=== PATIENT | female | born 1995 | race Caucasian/White ===

== ENCOUNTER 2016-07-29 | Emergency (ER) | payer OTHER ==
[~2016-07-29] VITALS: Ht 154.9 cm; Wt 79.4 kg
[2016-07-29] MEDS ORDERED: BACT800T5 PO (03:09)
[2016-07-29] MEDS ORDERED: BACTRIM 160MG/800MG DS TAB PO ONE (03:15)
[2016-07-29 03:20] VITALS: BP 124/73
== END 2016-07-29 03:21 | disposition home or self-care (01) ==
LOC: M ED 01:16
DX: L03.114 Cellulitis of left upper limb (principal)

== ENCOUNTER 2016-09-03 21:38 | Emergency (ER) | payer OTHER ==
[~2016-09-03] VITALS: Ht 154.9 cm; Wt 79.4 kg
[~2016-09-03 21:38] MED LIST: BACT800T5 PO
[2016-09-03 21:39] VITALS: BP 123/68
[2016-09-03] MEDS ORDERED: KEFL500C7 PO (23:40)
[2016-09-03] MEDS ORDERED: CEPHALEXIN 500 MG CAP PO ONE (23:45)
== END 2016-09-03 23:49 | disposition home or self-care (01) ==
LOC: M ED 23:44
DX: L03.011 Cellulitis of right finger (principal)

== ENCOUNTER → 2016-09-07 | Outpatient (REF) | payer OTHER ==
[~2016-09-07] MED LIST changes: +KEFL500C7 PO
== END ==
LOC: M WUC 16:30
PROVIDERS: ATTEND Physician Assistant
DX: L03.011 Cellulitis of right finger (principal)

== ENCOUNTER → 2016-11-01 | Outpatient (REF) | payer OTHER ==
[~2016-11-01] MED LIST changes: +KEFL500C17 PO; -KEFL500C7 PO; +NAPR500T PO
== END ==
LOC: M LAB REF 10:15
PROVIDERS: ATTEND Surgery
DX: L98.9 Disorder of the skin and subcutaneous tissue, unspecified (principal)

== ENCOUNTER 2016-11-28 20:10 | Emergency (ER) | payer OTHER ==
[~2016-11-28] VITALS: Ht 154.9 cm; Wt 79.5 kg
[~2016-11-28 20:10] MED LIST changes: -NAPR500T PO
[2016-11-28] MEDS ORDERED: NAPROXEN 250 MG TAB PO ONE (21:15)
[2016-11-28] MEDS ORDERED: NAPR500T PO (21:55)
[2016-11-28 21:59] VITALS: BP 115/72
--- NOTE | 2016-11-29 07:51 | REP ---
Left ankle four views : There is no fracture or dislocation. Mineralization and joint spaces are normal. There are no calcifications or foreign bodies. Impression: Negative left ankle . Signed by Stanley Antonio MD 11/29/2016 07:43 A
== END 2016-11-28 22:08 | disposition home or self-care (01) ==
LOC: M ED 20:10
DX: S90.02XA Contusion of left ankle, initial encounter (principal); V49.9XXA Car occupant (driver) (passenger) injured in unspecified traffic accident, initial encounter; Y92.410 Unspecified street and highway as the place of occurrence of the external cause; Y93.9 Activity, unspecified; Y99.9 Unspecified external cause status; Z91.040 Latex allergy status

== ENCOUNTER 2016-12-19 20:06 | Emergency (ER) | payer OTHER ==
[~2016-12-19] VITALS: Ht 154.9 cm; Wt 79.5 kg
[~2016-12-19 20:06] MED LIST changes: +NAPR500T PO
[2016-12-19] MEDS ORDERED: ACETAMINOPHEN TAB 650MG DOSE (2X325MG) PO ONE (22:30)
[2016-12-19 22:54] VITALS: BP 118/59
== END 2016-12-19 23:03 | disposition home or self-care (01) ==
LOC: M ED 20:06
DX: J02.9 Acute pharyngitis, unspecified (principal); Z91.040 Latex allergy status

== ENCOUNTER → 2017-06-02 | Outpatient (REF) | payer OTHER | LOC: M LAB REF 21:57 | DX: B00.9 Herpesviral infection, unspecified (principal) ==

== ENCOUNTER 2017-06-07 13:04 | Emergency (ER) | payer OTHER | END 2017-06-07 14:02 | disposition home or self-care (01) | LOC: M ED 13:04 | DX: L03.011 Cellulitis of right finger (principal); Z79.899 Other long term (current) drug therapy; Z91.040 Latex allergy status; Z91.041 Radiographic dye allergy status | CPT/HCPCS: 99283 ==

== ENCOUNTER 2018-01-02 10:14 | Emergency (ER) | payer OTHER ==
[2018-01-02] MEDS: IBUPROFEN 800 MG TAB PO (11:24)
== END 2018-01-02 11:31 | disposition home or self-care (01) ==
LOC: M ED 10:14
DX: S83.411A Sprain of medial collateral ligament of right knee, initial encounter (principal); W10.9XXA Fall (on) (from) unspecified stairs and steps, initial encounter; Y92.099 Unspecified place in other non-institutional residence as the place of occurrence of the external cause; Y93.9 Activity, unspecified; Y99.9 Unspecified external cause status; Z91.041 Radiographic dye allergy status; Z91.040 Latex allergy status
CPT/HCPCS: 73564

== ENCOUNTER 2018-07-15 12:08 | Emergency (ER) | payer OTHER ==
[~2018-07-15] VITALS: Ht 154.9 cm; Wt 81.8 kg
[~2018-07-15 12:08] MED LIST changes: +DICL500C PO; +IBUP80TA PO; +MULT1TAB18 PO; +NAPR-837 PO; -NAPR500T PO; +VALT500T PO
[2018-07-15] MEDS ORDERED: NAPR-837 PO (14:39)
[2018-07-15 14:47] VITALS: BP 120/82
== END 2018-07-15 14:48 | disposition home or self-care (01) ==
LOC: M ED 12:08
DX: M25.561 Pain in right knee (principal); G89.29 Other chronic pain; Z91.81 History of falling; Z91.041 Radiographic dye allergy status; Z91.040 Latex allergy status

== ENCOUNTER → 2018-10-18 | Outpatient (REF) | payer OTHER ==
[2018-10-18 12:15] LABS: HEMATOCRIT 39.7 % (36.0-47.0); HEMOGLOBIN 12.8 g/dl (12.0-15.5); MEAN CORPUSCULAR HEMOGLOBIN 30.5 pg (27.0-33.0); MEAN CORPUSCULAR HGB CONC 32.2 g/dl (32.0-36.5); MEAN CORPUSCULAR VOLUME 94.7 fl (80.0-96.0); PLATELET COUNT, AUTOMATED 319 10^3/uL (150-450); RED BLOOD COUNT 4.19 10^6/uL (4.00-5.40); WHITE BLOOD COUNT 8.2 10^3/uL (4.0-10.0)
[2018-10-18 12:31] LABS: ALBUMIN 3.8 GM/DL (3.2-5.2); ALT/SGPT 18 U/L (12-78); BILIRUBIN,TOTAL 0.4 MG/DL (0.2-1.0); BLOOD UREA NITROGEN 17 MG/DL (7-18); CALCIUM LEVEL 8.6 MG/DL (8.5-10.1); CARBON DIOXIDE LEVEL 30 MEQ/L (21-32); CHLORIDE LEVEL 105 MEQ/L (98-107); CHOLESTEROL LEVEL 181 MG/DL (<200); CHOLESTEROL RISK RATIO 2.549 (<5); CREATININE FOR GFR 0.72 MG/DL (0.55-1.30); FREE T4 1.33 NG/DL (0.76-1.46); GLOMERULAR FILTRATION RATE > 60.0 (>60); GLUCOSE, FASTING 88 MG/DL (70-100); HDL CHOLESTEROL 71 MG/DL (>40); LDL CHOLESTEROL 93 MG/DL (<100); NON-HDL-C 110 MG/DL; POTASSIUM SERUM 4.2 MEQ/L (3.5-5.1); SODIUM LEVEL 139 MEQ/L (136-145); TOTAL PROTEIN 6.9 GM/DL (6.4-8.2); TRIGLYCERIDES LEVEL 87 MG/DL (<150)
[2018-10-18 12:58] LABS: HEMOGLOBIN A1c 5.1 %
== END ==
LOC: M SFHCPLAZ 10:04
PROVIDERS: ATTEND Nurse Practitioner Family
DX: Z13.228 Encounter for screening for other metabolic disorders (principal)

== ENCOUNTER → 2019-10-17 | Outpatient (CLI) | payer OTHER ==
--- NOTE | 2019-10-17 15:31 | REP ---
Right lower extremity Duplex Doppler venous ultrasound: Real time compression and duplex Doppler interrogation of the right lower extremity deep venous system is performed. The right common femoral, superficial femoral and popliteal veins are fully compressible with transducer pressure and demonstrate normal spontaneous and phasic flow, without evidence of deep venous thrombosis. Impression: No evidence of deep venous thrombosis of the right lower extremity femoral popliteal venous system. Electronically Signed by Stanley Hopper MD 10/17/2019 03:22 P
== END ==
LOC: M LRY 14:09
PROVIDERS: ATTEND Orthopaedic Surgery
DX: M79.661 Pain in right lower leg (principal)

== ENCOUNTER → 2020-03-05 | Outpatient (CLI) | payer OTHER | LOC: M LABSMTC 09:49 | PROVIDERS: ATTEND Orthopaedic Surgery | DX: Z01.812 Encounter for preprocedural laboratory examination (principal); Z20.828 Contact with and (suspected) exposure to other viral communicable diseases ==

== ENCOUNTER 2020-03-14 08:11 | Emergency (ER) | payer OTHER ==
[~2020-03-14] VITALS: Ht 154.9 cm; Wt 88.2 kg
[2020-03-14] MEDS ORDERED: DULC5TAB PO (08:16)
[2020-03-14] MEDS ORDERED: METOCLOPRAMIDE INJ 10MG/2ML VIAL (J2765 PER 1) IV ONE (08:45)
[2020-03-14 09:20] LABS: BASO % 0.2 % (0.0-1.0); EOS # 0.1 10^3/uL (0.0-0.5); EOS % 0.3 % (0.0-3.0); HEMATOCRIT 37.8 % (36.0-47.0); HEMOGLOBIN 12.6 g/dl (12.0-15.5); LYMPH # 1.6 10^3/uL (1.5-5.0); LYMPH % 11.4 % (24.0-44.0); MEAN CORPUSCULAR HEMOGLOBIN 30.1 pg (27.0-33.0); MEAN CORPUSCULAR HGB CONC 33.3 g/dl (32.0-36.5); MEAN CORPUSCULAR VOLUME 90.4 fl (80.0-96.0); MONO # 0.7 10^3/uL (0.0-0.8); MONO % 5.1 % (0.0-5.0); NEUTROPHILS # 11.8 10^3/uL (1.5-8.5); NEUTROPHILS % 82.2 % (36.0-66.0); PLATELET COUNT, AUTOMATED 343 10^3/uL (150-450); RED BLOOD COUNT 4.18 10^6/uL (4.00-5.40); WHITE BLOOD COUNT 14.4 10^3/uL (4.0-10.0)
[2020-03-14] MEDS ORDERED: NS 1,000 ML IV ONE (09:30)
--- NOTE | 2020-03-14 09:30 | REP ---
INDICATION: constipation COMPARISON: None. TECHNIQUE: Supine view of the abdomen and pelvis. FINDINGS: Bowel gas pattern is nonspecific and without obstruction or perforation. No organomegaly. No abnormal calcifications. Skeletal structures intact. IMPRESSION: Normal abdominal radiograph. <Electronically signed by Franko Peace > 03/14/20 [id number]
[2020-03-14] MEDS ORDERED: METHYLNALTREXONE BROMIDE 12 MG/0.6 ML VIAL (RELISTOR) SC ONE (09:45)
[2020-03-14 09:59] LABS: BLOOD UREA NITROGEN 14 MG/DL (7-18); CARBON DIOXIDE LEVEL 23 MEQ/L (21-32); CHLORIDE LEVEL 106 MEQ/L (98-107); CREATININE FOR GFR 0.66 MG/DL (0.55-1.30); GLOMERULAR FILTRATION RATE > 60.0 (>60); GLUCOSE, FASTING 96 MG/DL (70-100); POTASSIUM SERUM 4.1 MEQ/L (3.5-5.1); SODIUM LEVEL 135 MEQ/L (136-145)
[2020-03-14 10:00] LABS: ALBUMIN 4.1 GM/DL (3.2-5.2); ALT/SGPT 21 U/L (12-78); BILIRUBIN,DIRECT 0.1 MG/DL (0.0-0.2); BILIRUBIN,TOTAL 0.6 MG/DL (0.2-1.0); LIPASE 56 U/L (73-393); TOTAL PROTEIN 7.2 GM/DL (6.4-8.2)
[2020-03-14 11:13] VITALS: BP 136/85
--- NOTE | 2020-03-14 11:32 | REP ---
INDICATION: llq pain, n,v constipation COMPARISON: 02/25/2017 TECHNIQUE: Axial noncontrast images from the lung bases to the pubic symphysis with coronal and sagittal reformations. This CT examination was performed using the following dose reduction techniques: Automated exposure control, adjustment of mA and/or kv according to the patient's size, and use of iterative reconstruction technique. FINDINGS: Lung bases are clear. Visualized heart and pericardium normal. Liver, spleen, pancreas, gallbladder, bilateral adrenal glands and kidneys are normal. The enteric system is unremarkable and without obstruction or acute inflammatory process. Normal terminal ileum and appendix identified in the right lower quadrant. No evidence for diverticulitis. Pelvis demonstrates normal bladder and age-appropriate uterus/adnexa. No ascites. No free air. No adenopathy. No focal inflammatory stranding. Abdominal aorta without aneurysm. Musculoskeletal structures are intact and without acute osseous abnormality. IMPRESSION: No acute abdominopelvic pathology appreciated. <Electronically signed by Franko Peace > 03/14/20 [id number]
[2020-03-14] MEDS ORDERED: MIRA3350 PO (11:36)
[2020-03-14] MEDS ORDERED: SENN-85 PO (11:36)
== END 2020-03-14 12:17 | disposition home or self-care (01) ==
LOC: M ED 08:11
DX: K59.00 Constipation, unspecified (principal); R11.2 Nausea with vomiting, unspecified; Z91.041 Radiographic dye allergy status; Z91.040 Latex allergy status
CPT/HCPCS: 36415; 74018; 74176; 80047; 80048; 80076; 83690; 84702; 85025; 96361; 96374; 99284; J2765

== ENCOUNTER → 2020-07-01 | Outpatient (REF) | payer OTHER ==
[~2020-07-01] MED LIST changes: +DULC5TAB PO; +MIRA3350 PO; +SENN-85 PO
[2020-07-01 12:24] LABS: BASO % 0.4 % (0.0-1.0); EOS # 0.2 10^3/uL (0.0-0.5); EOS % 2.1 % (0.0-3.0); HEMATOCRIT 38.4 % (36.0-47.0); HEMOGLOBIN 12.7 g/dl (12.0-15.5); LYMPH # 2.4 10^3/uL (1.5-5.0); LYMPH % 30.8 % (24.0-44.0); MEAN CORPUSCULAR HEMOGLOBIN 30.3 pg (27.0-33.0); MEAN CORPUSCULAR HGB CONC 33.1 g/dl (32.0-36.5); MEAN CORPUSCULAR VOLUME 91.6 fl (80.0-96.0); MONO # 0.6 10^3/uL (0.0-0.8); NEUTROPHILS # 4.4 10^3/uL (1.5-8.5); NEUTROPHILS % 58.2 % (36.0-66.0); PLATELET COUNT, AUTOMATED 307 10^3/uL (150-450); RED BLOOD COUNT 4.19 10^6/uL (4.00-5.40); WHITE BLOOD COUNT 7.6 10^3/uL (4.0-10.0)
[2020-07-01 12:42] LABS: HEMOGLOBIN A1c 5.2 %
[2020-07-01 13:01] LABS: ALBUMIN 3.8 GM/DL (3.2-5.2); ALT/SGPT 19 U/L (12-78); BILIRUBIN,TOTAL 0.3 MG/DL (0.2-1.0); BLOOD UREA NITROGEN 17 MG/DL (7-18); CALCIUM LEVEL 8.8 MG/DL (8.5-10.1); CARBON DIOXIDE LEVEL 28 MEQ/L (21-32); CHLORIDE LEVEL 105 MEQ/L (98-107); CHOLESTEROL LEVEL 226 MG/DL (<200); CHOLESTEROL RISK RATIO 3.275 (<5); FREE T4 1.08 NG/DL (0.76-1.46); GLOMERULAR FILTRATION RATE > 60.0 (>60); GLUCOSE, FASTING 87 MG/DL (70-100); HDL CHOLESTEROL 69 MG/DL (>40); LDL CHOLESTEROL 144 MG/DL (<100); NON-HDL-C 157 MG/DL; POTASSIUM SERUM 4.3 MEQ/L (3.5-5.1); SODIUM LEVEL 138 MEQ/L (136-145); TOTAL PROTEIN 6.7 GM/DL (6.4-8.2); TRIGLYCERIDES LEVEL 64 MG/DL (<150)
[2020-07-01 13:02] LABS: TOTAL 25(OH) VITAMIN D 15.7 NG/ML (30.0-100.0)
[2020-07-01 13:42] LABS: HIV 1&2 SCREEN CENTAUR NEGATIVE (NEGATIVE)
[2020-07-02 12:48] LABS: HEPATITIS C VIRUS ABY INDEX < 0.0 INDEX (<0.8)
== END ==
LOC: M LAB REF 12:07
PROVIDERS: ATTEND Nurse Practitioner Family
DX: E66.9 Obesity, unspecified (principal); Z13.228 Encounter for screening for other metabolic disorders; Z13.29 Encounter for screening for other suspected endocrine disorder

== ENCOUNTER → 2020-12-14 | Outpatient (REF) | payer OTHER ==
[2020-12-14 17:42] LABS: BASO % 0.5 % (0.0-1.0); EOS # 0.2 10^3/uL (0.0-0.5); EOS % 2.3 % (0.0-3.0); HEMATOCRIT 38.1 % (36.0-47.0); HEMOGLOBIN 12.1 g/dl (12.0-15.5); LYMPH # 2.5 10^3/uL (1.5-5.0); LYMPH % 37.8 % (24.0-44.0); MEAN CORPUSCULAR HEMOGLOBIN 29.5 pg (27.0-33.0); MEAN CORPUSCULAR HGB CONC 31.8 g/dl (32.0-36.5); MEAN CORPUSCULAR VOLUME 92.9 fl (80.0-96.0); MONO # 0.6 10^3/uL (0.0-0.8); MONO % 8.6 % (2.0-8.0); NEUTROPHILS # 3.4 10^3/uL (1.5-8.5); NEUTROPHILS % 50.3 % (36.0-66.0); PLATELET COUNT, AUTOMATED 318 10^3/uL (150-450); WHITE BLOOD COUNT 6.6 10^3/uL (4.0-10.0)
[2020-12-14 18:08] LABS: ALBUMIN 3.3 GM/DL (3.2-5.2); ALT/SGPT 22 U/L (12-78); BILIRUBIN,TOTAL 0.6 MG/DL (0.2-1.0); BLOOD UREA NITROGEN 14 MG/DL (7-18); CALCIUM LEVEL 8.6 MG/DL (8.5-10.1); CARBON DIOXIDE LEVEL 28 MEQ/L (21-32); CHLORIDE LEVEL 106 MEQ/L (98-107); CHOLESTEROL LEVEL 188 MG/DL (<200); CHOLESTEROL RISK RATIO 3.081 (<5); CREATININE FOR GFR 0.66 MG/DL (0.55-1.30); GLOMERULAR FILTRATION RATE > 60.0 (>60); GLUCOSE, FASTING 83 MG/DL (70-100); HDL CHOLESTEROL 61 MG/DL (>40); LDL CHOLESTEROL 117 MG/DL (<100); NON-HDL-C 127 MG/DL; POTASSIUM SERUM 4.6 MEQ/L (3.5-5.1); SODIUM LEVEL 137 MEQ/L (136-145); TOTAL PROTEIN 6.5 GM/DL (6.4-8.2); TRIGLYCERIDES LEVEL 49 MG/DL (<150)
[2020-12-14 18:16] LABS: TOTAL 25(OH) VITAMIN D 16.4 NG/ML (30.0-100.0)
== END ==
LOC: M LAB REF 16:48
PROVIDERS: ATTEND Nurse Practitioner Family
DX: E78.5 Hyperlipidemia, unspecified (principal); E55.9 Vitamin D deficiency, unspecified; E66.9 Obesity, unspecified

== ENCOUNTER → 2023-03-31 | Outpatient (REF) | payer OTHER | LOC: M LAB REF 18:06 | PROVIDERS: ATTEND Physician Assistant Medical | DX: J02.9 Acute pharyngitis, unspecified (principal) ==

== ENCOUNTER → 2023-10-23 | Outpatient (REF) | payer OTHER ==
[2023-10-23 17:42] LABS: BLOOD UREA NITROGEN 16 MG/DL (9-23); CALCIUM LEVEL 9.4 MG/DL (8.5-10.1); CARBON DIOXIDE LEVEL 28 MMOL/L (20-31); CHLORIDE LEVEL 104 MMOL/L (98-107); CHOLESTEROL LEVEL 219 MG/DL (<200); CHOLESTEROL RISK RATIO 3.49 (<5); CREATININE FOR GFR 0.58 MG/DL (0.55-1.30); GLOMERULAR FILTRATION RATE > 60.0 (>60); GLUCOSE, FASTING 82 MG/DL (60-100); HDL CHOLESTEROL 62.6 MG/DL (>40); LDL CHOLESTEROL 141.8 MG/DL (<100); NON-HDL-C 156.4 MG/DL; POTASSIUM SERUM 4.4 MMOL/L (3.5-5.1); SODIUM LEVEL 136 MMOL/L (136-145); TRIGLYCERIDES LEVEL 73 MG/DL (<150)
[2023-10-23 17:44] LABS: THYROID STIMULATING HORMONE 0.997 uIU/ML (0.55-4.78)
[2023-10-23 17:45] LABS: TOTAL 25(OH) VITAMIN D 18.4 NG/ML (20.0-100.0)
== END ==
LOC: M LAB REF 16:20
PROVIDERS: ATTEND Nurse Practitioner Family
DX: Z68.33 Body mass index [BMI] 33.0-33.9, adult (principal); E55.9 Vitamin D deficiency, unspecified

== ENCOUNTER → 2024-01-30 | Outpatient (CLI) | payer OTHER | LOC: M EKG 13:14 | PROVIDERS: ATTEND Nurse Practitioner Psychiatric/Mental Health | DX: F90.0 Attention-deficit hyperactivity disorder, predominantly inattentive type (principal) ==

== ENCOUNTER → 2024-05-28 | Outpatient (CLI) | payer OTHER | LOC: M WHC 09:37 | PROVIDERS: ATTEND Nurse Practitioner Family | DX: N64.4 Mastodynia (principal); Z80.3 Family history of malignant neoplasm of breast ==

== ENCOUNTER → 2024-10-28 | Outpatient (REF) | payer OTHER ==
[2024-10-28 14:30] LABS: BASO # 0.0 10^3/uL (0.0-0.2); BASO % 0.4 % (0.0-1.0); EOS # 0.1 10^3/uL (0.0-0.5); EOS % 1.5 % (0.0-3.0); LYMPH # 1.7 10^3/uL (1.5-5.0); LYMPH % 23.2 % (24.0-44.0); MONO # 0.5 10^3/uL (0.0-0.8); MONO % 7.0 % (2.0-8.0); NEUTROPHILS # 4.9 10^3/uL (1.5-8.5); NEUTROPHILS % 67.2 % (36.0-66.0); PLATELET COUNT, AUTOMATED 306 10^3/uL (150-450)
[2024-10-28 14:34] LABS: ERYTHROCYTE SEDIMENTATION RATE 16 mm/hr (0-20)
[2024-10-28 14:37] LABS: C REACTIVE PROTEIN QUANTITATIV 0.89 MG/DL (<1.0)
[2024-10-28 14:38] LABS: ALT/SGPT 20 U/L (7.0-40); AST/SGOT 24 U/L (<34); CALCIUM LEVEL 9.4 MG/DL (8.5-10.1); CARBON DIOXIDE LEVEL 25 MMOL/L (20-31); CHLORIDE LEVEL 106 MMOL/L (98-107); CHOLESTEROL LEVEL 198 MG/DL (<200); CHOLESTEROL RISK RATIO 2.86 (<5); CREATININE FOR GFR 0.60 MG/DL (0.55-1.30); GLOMERULAR FILTRATION RATE > 90.0 (>60); LDL CHOLESTEROL 118.7 MG/DL (<100); NON-HDL-C 128.9 MG/DL; POTASSIUM SERUM 4.5 MMOL/L (3.5-5.1); SODIUM LEVEL 143 MMOL/L (136-145); TRIGLYCERIDES LEVEL 51 MG/DL (<150)
[2024-10-28 16:44] LABS: ESTIMATED AVERAGE GLUCOSE 97.0 MG/DL (60-110)
== END ==
LOC: M LAB REF 13:48
PROVIDERS: ATTEND Nurse Practitioner Family
DX: Z68.33 Body mass index [BMI] 33.0-33.9, adult (principal); E66.9 Obesity, unspecified; E78.5 Hyperlipidemia, unspecified; R69 Illness, unspecified